=== PATIENT | female | born 1965 | race Hispanic/Latino ===

== ENCOUNTER 2016-09-22 11:15 | Day surgery (SDC) | payer OTHER ==
[~2016-09-22] VITALS: Ht 165.1 cm; Wt 83.0 kg
--- NOTE | 2016-09-22 07:32 | PCM.HPANE ---
Patient Data Surgeon Admitting Provider: Attending Provider:Pa Villa MD Primary Care Physician:Nani Glass Other Provider:Zahraa Alexander Anesthesia Reason for Visit Melena, Iron Deficiency Anemia Ht/WT & BMI Body Mass Index Allergies Coded Allergies: No Known Allergies (Verified , 09/21/16) Past Anesthesia History Anesthesia History: Denies:: Abnormal Airway, Anesthesia Reactions (VERY DIFFICULT TO NUMB ), Difficult Intubation, Fam Anesthesia Reaction, Fam Malignant Hypertherm, Malignant Hyperthermia Diabetes History Hx Diabetes?: No MRSA MRSA: No Medications Blood Thinner: Aspirin Reported Medications Polyethylene Glycol 3350 (Miralax)17 Gm Powd.pack17 Gm PO DAILY 02/11/16 Levothyroxine 150 Mcg [id number] Mcg PO DAILY Ref 0 06/25/15 Discontinued Reported Medications Naproxen 500 Mg Qjm358 Mg PO BID PRN For Pain Ref 0 06/25/16 Glucosamine HCl 1,500 Mg Tablet1,500 Mg PO Every other day 02/11/16 History History of ENT Problems?: No HEENT History: Denies:: Abnormal Airway Cataracts Difficult Intubation Dysphagia Hearing Problem Sinus Problem Hx of Heart Problems?: No Cardiovascular History: Denies:: AICD Atrial Fibrillation Chest Pain Congestive Heart Failure Hypertension Pacemaker Valvular Heart Disease Hx of Respiratory Problem?: No Respiratory History: Denies:: Asthma COPD Cough Hemoptysis Pneumonia Tuberculosis Hx Neurologic Problems?: No Neurological History: Denies:: CVA Hx of GI Problems?: Yes Gastrointestinal History: Positive for:: Rectal Bleeding (BRIGHT RED BLOOD) Denies:: Cirrhosis Diverticulitis Gastroesphageal Reflux Hiatal Hernia Hx of Problems?: No Female Hx: Denies:: Currently (TUBAL) Endometriosis Pelvic Inflammatory Hx Musculoskeletal Problems?: No Musculoskeletal History: Denies:: Joint Replacement Hx of Psycho/Social Problems?: No Psycho Social History: Denies:: Anxiety Hx Depression Hx Surgeries?: Yes (C-SECTIONS, TUBAL) Hx Any Other Health Problems?: Yes Other History: Positive for:: Thyroid Disease History Blood Transfusions: Denies:: Blood Transfusions Hx Diabetes: No Hx Alcohol Use: Yes (GLASS OF WINE EVERY WEEK AT MOST)Hx Substance Use: No Smoking Status: Unknown if Ever Smoker Have You Smoked inLast 12 mo: No Stop/Bang Risk Assessment Category Category 1A: Patient has history of documented sleep apnea, and HAS NOT received any narcotic, sedative or anesthesia administration during this stay. Category 1B: Patient has history of documented sleep apnea, and HAS received any narcotic , sedative or anesthesia administration during this stay Category 2: Patient has SUSPECTED Obstructive Sleep Apnea, and HAS received any narcotic , sedative or anesthesia administration during this stay. Category 3: Patient has SUSPECTED Obstructive Sleep Apnea and HAS NOT received narcotic, sedative or anesthesia administration during this stay. Category 4: Outpatient in Procedural Areas with known sleep apnea or who screen positive for High Risk via the STOP/BANG questionnaire. Exam Exam General Appearance: Alert, Oriented X3, Cooperative, No Acute Distress HEENT/AIRWAY: MP 1 Lungs: Normal Air Movement Heart: Regular Rate/Rhythm Plan Impression Patient chart reviewed, patient interviewed and anesthestic plan with risks, benefits, and alternatives discussed, and informed consent obtained. ASA Physical Status: ASA2 Mod Systemic Disease Anesthetic Plan: MAC Bene/Risks/Altern/Consents: Yes HP Complete Prior to Induction: Yes Jackeline Justin DO Sep 22, 2016 07:32
[~2016-09-22 11:15] MED LIST: GLUC1500 PO; LEVO150T5 PO; Lactated Ringer's 1,000 ML IV ONE; NPR500T PO; POLY17PO6 PO
[2016-09-22] MEDS ORDERED: Propofol 10,000 mCg/mL 20 mL Inj ONE ×2 (11:16)
[2016-09-22 11:42] VITALS: BP 107/71; PULSE 65; RESP 16; O2SAT 95
[2016-09-22 12:42] VITALS: BP 99/65; PULSE 69; RESP 14; O2SAT 94
--- NOTE | 2016-09-22 12:42 | PCM.ANEP1 ---
Post Anesthesia Phase 1 PACU Phase 1 Assessment Vital Signs Vital Signs Date Time Temp Pulse Resp B/P Pulse Ox O2 Delivery O2 Flow Rate FiO2 09/22/16 11:42 36.4 65 16 107/71 95 Room Air Anesthetic Administered: MAC Level of Alertness: Sleeping, hard to arouse AWAD's with Equal Strength: Yes Pain: No Nausea or Vomiting: No Oxygen Delivery: Room Air Lungs: Normal Air Movement Jackeline Justin DO Sep 22, 2016 12:42
--- NOTE | 2016-09-22 12:42 | PCM.ANEP2 ---
Post Anesthesia Evaluation ASA/CMS Post Anesthesia VS in Patient's Normal Range?: Yes Resp Stable; Airway Patent?: Yes CV Function & Hydration Stable: Yes Mental Status Recovered?: Yes Pain control Satisfactory?: Yes N/V Control Satisfactory?: Yes Jackeline Justin DO Sep 22, 2016 12:42
[2016-09-22 12:51] VITALS: BP 126/84; PULSE 70; RESP 14; O2SAT 96
--- NOTE | 2016-09-22 13:18 | ENDO ---
[address] [address] ENDOSCOPY PROCEDURE PATIENT: OLIVER BERNSTEIN MA : 1965 MR#: [id number] ADMIT: 09/22/2016 JOB ID: [id number] PRIMARY PROVIDER: MELODIE Gloria. PROCEDURE: Esophagogastroduodenoscopy with biopsies and flexible sigmoidoscopy. INDICATIONS: A 51-year-old female with a history of iron deficiency anemia of uncertain etiology. Repeat EGD for more definitive small-bowel biopsies is pursued. She additionally has an updated colonoscopy but continues to experience intermittent red blood per rectum. She struggles with both constipation and overflow-type diarrhea. EQUIPMENT: GIF-H180. SEDATION: Monitored anesthesia as provided by Dr. Jackeline Justin. COMPLICATIONS: None identified. BOWEL PREPARATION: This was accomplished with two Fleet enemas and was adequate distally. There was solid stool debris seen at around 25 cm into the sigmoid colon. PROCEDURE INFORMATION: After the risks and benefits were explained, written and verbal informed consent was obtained, the patient was brought into the endoscopy suite and placed into the left lateral decubitus position. Sedation was achieved as above, the scope introduced into the mouth through the bite block, and advanced under direct visualization to the second portion of the duodenum. The scope was slowly withdrawn to carefully examine the mucosa for any defects or lesions. Retroflexed views were accomplished in the stomach. The stomach was decompressed. The scope removed the patient who tolerated the procedure well. The patient was then turned around. A digital rectal examination accomplished. Mild to moderate internal/external nonbleeding, nonthrombosed hemorrhoids identified. No other pathology. The scope was introduced into the rectum and advanced to the level of the mid sigmoid where solid stool debris was encountered. We slowly then withdrew to carefully examine the distal mucosa for any pathology. Colon was decompressed. The scope removed from the patient, after retroflexed views were obtained. The patient tolerated the procedure well. FINDINGS: 1. Duodenum: This appeared visually normal from the bulb through to the second portion apart from a small nodule in the 9 o'clock position, just inside the pyloric channel. We biopsied this area with two large bites and it actually felt as though it may have been a submucosal nodule. Will see what the pathology reveals. Otherwise mucosa was normal. Random biopsies x4 were acquired from D2. 2. Stomach: No ulcers, no outlet obstruction. No mass lesions. Diffuse minimum gastropathy, and therefore, random biopsy was taken for exclusion of Helicobacter. Retroflexed views of the LES were unremarkable. 3. Esophagus: The squamocolumnar junction correlated with the top of the gastric folds. The GE junction was at 35 cm from the incisors. No pathology appreciated throughout the esophagus. 4. Colon: Moderate internal hemorrhoidal cushions x2. No mass lesions. No significant polyps, no evidence of proctitis or colitis. Brown, formed, fragmented and apparently soft stools seen in the sigmoid colon. ENDOSCOPIC DIAGNOSES: 1. Proximal duodenal nodule. 2. Minimal gastropathy. 3. Otherwise visually unremarkable esophagogastroduodenoscopy. 4. Moderate internal hemorrhoids. RECOMMENDATIONS: 1. Await histopathology. 2. Continue to monitor iron deficiency status in Hematology Clinic as before. 3. Increase bowel regimen. I have recommended fiber supplementation with either soaked Edenilson seeds or dilute ground flaxseed fiber. I have additionally recommended that a daily portion of organic sauerkraut. The patient would likely additionally benefit from a dose of MiraLAX once daily as needed if bowel activity does not sufficiently improve. 4. I would recommend a short course of [id number] Anusol suppositories along with intermittent warm Epsom salt baths each evening over the next week or so. 5. Follow up in GI clinic with Noam Oakes PA-C, in the next few weeks.
--- NOTE | 2016-09-23 14:35 | PATH ---
SURGICAL PATHOLOGY Attending Physician:La Marshall CASE STATUS: Signed Out PATIENT NAME: OLIVER BERNSTEIN PID: [id number] : 1965 DATE COLLECTED:09/22/2016 21:47 SPECIMEN: 1: Duodenum, Biopsy 2: Duodenum, Biopsy 3: Gastric, Biopsy CLINICAL HISTORY: 1). DUODENUM BIOPSY 2). DUODENAL BULB BIOPSY 3). GASTRIC BIOPSY FINAL DIAGNOSIS: 1. Duodenum Biopsy: Fragments of normal appearing duodenum mucosa. Normal delicate mucosal villi present. Negative for significant inflammation, dysplasia and malignancy. 2. Duodenal Bulb Biopsy: Fragment of duodenal mucosa with prominent submucosal lymphoid hyperplasia. Negative for significant inflammation, dysplasia and malignancy. Negative for evidence of celiac disease. 3. Gastric Biopsy: Diffuse mild to moderate chronic gastritis involving antral mucosa. Immunohistochemistry for Helicobacter pending to be reported by addendum. Negative for intestinal metaplasia. Negative for dysplasia and malignancy. ICD10 K29.70 GROSS DESCRIPTION: The specimen is received in three formalin filled containers labeled with the patient's name. 1). The specimen is sublabeled "duodenum" and consists of 4 portions of tissue which aggregate to 0.4 x 0.4 x 0.2 CM. The specimen is entirely submitted in cassette 1A. 2). The specimen is sublabeled "duodenal bulb" and consists of 2 portions of tissue which aggregate to 0.3 x 0.3 x 0.2 CM. The specimen is entirely submitted in cassette 2A. 3). The specimen is sublabeled "gastric" and consists of a 0.3 x 0.3 x 0.3 CM portion of tissue which is entirely submitted in cassette 3A. 09/22/2016 [facility] ICD-9 CODES: CPT CODES: 1: 79730 2: 18682 3: 07576, 36754, 23405 PROCEDURE/ADDENDA: Immunohistochemistry SPI Interpretation {Not Entered} Results-Comments Immunohistochemistry Results: 3.GASTRIC BIOPSY: NEGATIVE FOR HELICOBACTER PYLORI BY IMMUNOHISTOCHEMISTRY. This test was developed and its performance characteristics determined by [facility]. It has not been cleared or approved by the [place]. [place]. Food and Drug Administration. The FDA has determined that such clearance or approval is not necessary. This test is used for clinical purposes. It should not be regarded as investigational or for research. Electronically Signed Out Pa Brooke MD Electronically Signed Out Pa Brooke MD [facility] Pathology [facility] [address], [place] [address] Technical component performed at [facility], [address], [place], [address]
== END 2016-09-22 23:59 | disposition home or self-care (01) ==
LOC: END 11:15
PROVIDERS: ATTEND Internal Medicine Gastroenterology
DX: K29.50 Unspecified chronic gastritis without bleeding (principal); K64.8 Other hemorrhoids; K92.1 Melena; D50.9 Iron deficiency anemia, unspecified; K31.9 Disease of stomach and duodenum, unspecified; Z79.899 Other long term (current) drug therapy
CPT/HCPCS: 43239; 45330; J2250; J7120